=== PATIENT | female | born 1980 | race Caucasian/White ===

== ENCOUNTER → 2022-09-09 13:46 | Outpatient (BNVA) | payer MEDICAID, SELFPAY | PROVIDERS: PCP Family Medicine; Visit Provider Physician Assistant Surgical ==

== ENCOUNTER 2022-11-20 09:46 | Outpatient (REF) | payer MEDICAID, SELFPAY ==
[2022-11-20 14:51] LABS: MANUAL DIFF FLAG NO
[2022-11-20 14:54] LABS: Basophils Absolute Auto 0.1 X10*3/uL (0.0-0.2); Basophils Percent Auto 0.9 % (0-2); Eosinophils Absolute Auto 0.1 X10*3/uL (0.0-0.4); Eosinophils Percent Auto 1.5 % (0-4); Hematocrit 41.5 % (37.0-47.0); Hemoglobin 13.7 g/dl (12.0-16.0); Imm Gran Abs Auto 0.01 X10*3/uL (0.00-0.03); Imm Gran Pct Auto 0.2 % (0.0-0.4); Lymphocytes Absolute Auto 2.4 X10*3/uL (1.2-4.9); Lymphocytes Percent Auto 44.2 % (20-40); Mean Corpuscular Hemoglobin 30.2 pg (27.0-33.0); Mean Corpuscular Volume 91.6 fL (80.0-98.0); Monocytes Absolute Auto 0.5 X10*3/uL (0.1-1.2); Monocytes Percent Auto 9.6 % (2-11); Neutrophils Absolute Auto 2.3 x10*3/uL (2.0-8.3); Neutrophils Percent Auto 43.6 % (45-73); Platelet Count 487 X10*3/uL (160-400); Red Blood Count 4.53 X10*6/uL (4.20-5.50); Red Cell Distribution Width 11.9 % (11.0-16.0); White Blood Count 5.3 X10*3/uL (4.8-10.8)
[2022-11-20 15:06] LABS: Estimated Average Glucose 108 mg/dL; Hemoglobin A1c % 5.4 % (<6.0)
[2022-11-20 15:13] LABS: Alanine Aminotransferase 45 U/L (0-31); Albumin Level 4.7 g/dL (3.5-5.0); Alkaline Phosphatase 55 U/L (39-117); Anion Gap 15 (12-20); Aspartate Amino Transferase 37 U/L (5-31); Bilirubin Total 0.4 mg/dL (0.0-1.0); Blood Urea Nitrogen 10 mg/dL (9-16); Calcium 9.9 mg/dL (8.4-10.2); Carbon Dioxide 24 mmol/L (22-29); Chloride 105 mmol/L (96-108); Cholesterol 210 mg/dL (<200); Estimated Glomerular Filt Rate > 60; Glucose Fasting 104 mg/dL (60-99); HDL Cholesterol 37 mg/dL (>40); LDL Cholesterol Calculated 138 mg/dL (<100); Potassium 4.1 mmol/L (3.3-5.1); Sodium 140 mmol/L (135-145); Total Protein 8.6 g/dL (6.5-8.0); Triglycerides 178 mg/dL (<150)
[2022-11-20 15:24] LABS: Iron 114 mcg/dL (30-160); Percent Iron Saturation 38 % (15-50); Total Iron Binding Capacity 303 mcg/dL (228-428); Unsaturated Iron Binding 189 ug/dL
[2022-11-20 15:43] LABS: HCG Quantitative < 2 mIU/mL; TSH reflex Free T4 0.82 uIU/mL (0.32-4.0)
[2022-11-21 21:03] LABS: Follicle Stimulating Hormone 40.7 mIU/mL; Prolactin 14.2 ng/mL
[2022-11-22 19:49] LABS: TS Negative Control Passed; TS Panel A 1; TS Panel B 1; TS Positive Control Passed; TSpotTB Negative (Negative)
== END 2022-11-20 09:47 | disposition home or self-care (01) ==
LOC: HO.CHCLDS 09:46
PROVIDERS: Visit Provider Internal Medicine
DX: E66.09 Other obesity due to excess calories (principal); N93.9 Abnormal uterine and vaginal bleeding, unspecified; Z11.1 Encounter for screening for respiratory tuberculosis; Z68.32 Body mass index [BMI] 32.0-32.9, adult
CPT/HCPCS: 36415; 80053; 80061; 83001; 83002; 83036; 83540; 84146; 84443; 84702; 85025; 86481

== ENCOUNTER 2024-04-21 10:18 | Outpatient (REF) | payer MEDICAID, SELFPAY ==
[2024-04-21 11:37] LABS: MANUAL DIFF FLAG NO
[2024-04-21 11:47] LABS: Basophils Absolute Auto 0.1 X10*3/uL (0.0-0.2); Eosinophils Absolute Auto 0.1 X10*3/uL (0.0-0.4); Eosinophils Percent Auto 1.2 % (0-4); Hematocrit 38.8 % (37.0-47.0); Hemoglobin 13.2 g/dl (12.0-16.0); Imm Gran Abs Auto 0.01 X10*3/uL (0.00-0.03); Imm Gran Pct Auto 0.2 % (0.0-0.4); Lymphocytes Percent Auto 39.5 % (20-40); Mean Corpuscular Volume 88.2 fL (80.0-98.0); Monocytes Absolute Auto 0.4 X10*3/uL (0.1-1.2); Monocytes Percent Auto 7.9 % (2-11); Neutrophils Absolute Auto 2.5 x10*3/uL (2.0-8.3); Neutrophils Percent Auto 50.2 % (45-73); Platelet Count 431 X10*3/uL (160-400); Red Cell Distribution Width 11.8 % (11.0-16.0)
[2024-04-21 12:28] LABS: Estimated Average Glucose 131 mg/dL; Hemoglobin A1c % 6.2 % (<6.0)
[2024-04-21 12:46] LABS: Alanine Aminotransferase 38 U/L (0-31); Albumin Level 4.5 g/dL (3.5-5.0); Alkaline Phosphatase 60 U/L (39-117); Anion Gap 11 (12-20); Aspartate Amino Transferase 29 U/L (5-31); Bilirubin Total 0.3 mg/dL (0.0-1.0); Blood Urea Nitrogen 11 mg/dL (9-16); Calcium 9.4 mg/dL (8.4-10.2); Carbon Dioxide 26 mmol/L (22-29); Chloride 109 mmol/L (96-108); Cholesterol 201 mg/dL (<200); Estimated Glomerular Filt Rate > 60; Glucose Random 115 mg/dL (60-115); HDL Cholesterol 42 mg/dL (>40); LDL Cholesterol Calculated 134 mg/dL (<100); Potassium 4.1 mmol/L (3.3-5.1); Sodium 142 mmol/L (135-145); Total Protein 8.6 g/dL (6.5-8.0); Triglycerides 129 mg/dL (<150)
--- OUTSIDE RECORDS SUMMARY | 2024-04-21 12:46 | XMS_ITS | Encounter Summary ---
Author Organization [employer] Address [address] [place] [address] Care Team Providers Care Feed Handler Name Role Phone Lewis Arce MD Primary Care Prov ider Encounter Details Date Type Department Care Team (Late st Contact Info) Description 2024 Telephone [facility] [address] [place], [place] [id number] Lyala Oliver, ANP [address] [place] [address] Social History Tobacco Use Types Packs/Day Years Used Date Smoking Tobacco: Never Smokeless Tobacco: Never Alcohol Use Standard Drinks/Week Comments Not Currently 0 (1 standard drink = 0.6 oz pur e alcohol) Alcohol Answer Date Recorded How often do you have a drink containing alcohol ? 1 2024 How many drinks containing a lcohol do you have on a typical day when you are drinking? 0 2024 How often do you have six or more drinks on one occasion? 0 2024 Depression Answer Date Recorded Patient Health Questionnaire-9 Score 7 2024 Patient Health Questionnaire-9 Score 7 2024 Last PHQ-9: Questionnaire Data Not on file 0 2024 Housing Stability Answer Date Recorded What is your housing situation today? I have [place] [address] you li ve. Do you have problems with any of the following? None of the above 2024 Food Insecurity Answer Date Recorded Within the past 12 months, y ou worried that your food would run out before you got money to buy more: Often true 2024 Within the past 12 months,th e food you bought just didn't last and you didn't have enough money to get more: Sometimes True 2024 Transportation Answer Date Recorded In the past 12 months, has l ack of transportation kept you from medical appts, meetings, work or from getting things needed for daily living? No 2024 Utilities Answer Date Recorded In the past 12 months, has t he electric, gas, oil or water company threatened to shut off services in your home? Yes 2024 Depression Answer Date Recorded Patient Health Questionnaire-2 Score 0 2024 Internet Access Answer Date Recorded Internet Access Q1 Yes 2024 Internet Access Q2 Not on file 2024 Comments Unknown Sex and Gender Information Value Date Recorded Sex Assigned at Female 12/09/2021 10:18 AM EDT Legal Sex Female 10:18 AM EDT Gender Identity Female 12/09/2021 10:18 AM EDT Sexual Orientation Straight 12/09/2021 10 :18 AM EDT documented as of this encounter Plan of Treatment Upcoming Encounters Date Type Department Care Team (Late st Contact Info) Description 07/26/2024 3:30 PM EDT Telemedicine [facility] & [facility] [address] [place] [address] Lewis Arce MD [address] [place] [address] documented as of this encounter Visit Diagnoses Not on filedocumented in this encounter Additional Health Concerns Assessment Noted Time PHQ-9 Depression Total Score: 7 04/22/19 25 10:07 AM EDT documented as of this encounter Care Teams Feed Handler Relationship Specialty Start Date End Date Lewis Arce MD [address] [place] [address] PCP - General Internal Medicine 06/20/19 documented as of this encounter
--- OUTSIDE RECORDS SUMMARY | 2024-04-21 12:46 | XMS_ITS | Encounter Summary ---
Author Organization [employer] Address [address] [facility] [place] [address] Care Team Providers Care Drum Saw Operator Name Role Phone Lewis Arce MD Primary Care Prov ider Encounter Details Date Type Department Care Team (Latest Contact Info) Description 2024 Travel Social History Tobacco Use Types Packs/Day Years [...] is your housing situation today? I have [place] carrion [address] you [...] Info) Description 07/26/2024 3:30 PM EDT Telemedicine [facility] MED & PEDS [address] [place] [address] Lewis Arce MD [address] [place] [address] documented as of this encounter Visit Diagnoses Not on filedocumented in this encounter Additional Health Concerns Assessment Noted Time PHQ-9 Depression Total Score: 7 04/22/19 25 10:07 AM EDT documented as of this encounter Care Teams Drum Saw Operator Relationship Specialty Start Date End Date Lewis Arce MD [address] [place] [address] PCP - General Internal Medicine 06/20/19 documented as of this encounter
--- OUTSIDE RECORDS SUMMARY | 2024-04-21 12:46 | XMS_ITS | Encounter Summary ---
Author Organization [employer] Address [address] [facility] [address] [place] [address] Care Team Providers Care Log Handling Equipment Operator Name Role Phone Lewis Arce MD Primary Care Prov ider Reason for Visit * Reason Comments Pre-visit Planning (Unable to reach for PVP screening, LVM) Encounter Details Date Type Department Care Team ([facility] st Contact Info) Description 04/14/2024 Patient Outreach [facility] MED[facility]INE [address] [place] [address] Lewis Arce MD [address] [place] [address] Pre-visit Planning ((Unable to reach for PVP screening, LVM)) Social History Tobacco Use Types Packs/Day Years Used Date Smoking Tobacco: Never Smokeless Tobacco: Never Alcohol Use Standard Drinks/Week Comments Defer 0 (1 standard drink = 0.6 oz pur e alcohol) Depression Answer Date Recorded Patient Health Questionnaire-9 Score 0 04/01/2022 Housing Stability Answer Date Recorded What is your housing situation today? I have [place] car[employer]ion 11/24/[address] you li ve. Do you have problems with any of the following? None of the above 11/24/2022 Food Insecurity Answer Date Recorded Within the past 12 months, y ou worried that your food would run out before you got money to buy more: Never True 11/24/2022 Within the past 12 months,th e food you bought just didn't last and you didn't have enough money to get more: Never True Transportation Answer Date Recorded In the past 12 months, has l ack of transportation kept you from medical appts, meetings, work or from getting things needed for daily living? No 11/24/2022 Utilities Answer Date Recorded In the past 12 months, has t he electric, gas, oil or water company threatened to shut off services in your home? No 11/24/2022 Depression Answer Date Recorded Patient Health Questionnaire-2 Score 0 04/01/2022 Comments Unknown Sex and Gender Information Value Date Recorded Sex Assigned at Female 12/09/2021 10:18 AM EDT Legal Sex Female 10:18 AM EDT Gender Identity Female 12/09/2021 10:18 AM EDT Sexual Orientation Straight 12/09/2021 10 :18 AM EDT documented as of this encounter Progress Notes * Rebecca Mace - 04/14/2024 10:23 AM EST CC Rebecca. Placed outbound call to patient to complete pre-visit planning. No answer at this time. Patient name and were not confirmed. CC left voicemail requesting return call. Direct contact information provided. documented in this encounter Plan of Treatment Upcoming Encounters Date Type Department Care Team (Late st Contact Info) Description 07/26/2024 3:30 PM EDT Telemedicine [facility] MED & PEDS [address] [place] [address] Lewis Arce MD [address] [place] [address] documented as of this encounter Visit Diagnoses Not on filedocumented in this encounter Additional Health Concerns Assessment Noted Time PHQ-9 Depression Total Score: 0 04/01/19 23 11:06 AM EST documented as of this encounter Care Teams Log Handling Equipment Operator Relationship Specialty Start Date End Date Lewis Arce MD [address] [place] [address] PCP - General Internal Medicine 06/20/19 documented as of this encounter
--- OUTSIDE RECORDS SUMMARY | 2024-04-21 12:46 | XMS_ITS | Encounter Summary ---
Author Organization [employer] Address [address] [facility] [address] [place] [address] Care Team Providers Care Gifts Officer Name Role Phone Lewis Arce MD Primary Care Prov ider Reason for Visit * Reason Comments Pre-visit Planning Pre-visit planning - LVM Encounter Details Date Type Department Care Team ([facility] st Contact Info) Description 04/11/2024 Patient Outreach [facility] MED & PEDS [address] [place] [address] Lewis Arce MD [address] [place] [address] Pre-visit Planning (Pre-visit planning - LVM ) Social History Tobacco Use Types Packs/Day Years [...] as of this encounter Progress Notes * Mel Wallis - 04/11/2024 1:27 PM EST VENKATESH Maldonado placed outbound call to patient to complete pre-visit planning. No answer at this time. Patient name and were not confirmed. CC left voicemail requesting return call. Direct contact information provided. documented in this encounter Plan of Treatment Upcoming Encounters Date Type Department Care Team (Late st Contact Info) Description 07/26/2024 3:30 PM EDT Telemedicine [facility] MED & PEDS [address] [place] [address] Lewis Arce MD [address] [place] [address] documented as of this encounter Visit Diagnoses Not on filedocumented in this encounter Additional Health Concerns Assessment Noted Time PHQ-9 Depression Total Score: 0 04/01/19 23 11:06 AM EST documented as of this encounter Care Teams Gifts Officer Relationship Specialty Start Date End Date Lewis Arce MD [address] [place] [address] PCP - General Internal Medicine 06/20/19 documented as of this encounter
--- OUTSIDE RECORDS SUMMARY | 2024-04-21 12:46 | XMS_ITS | Clinical Summary ---
Author Organization [employer] Address [address] [facility] [address] [place] [address] Care Team Providers Care Studio Set Up Worker Name Role Phone Lewis Arce MD Primary Care Prov ider Allergies No known active allergies Medications Cholecalciferol 25 MCG (1000 UT) chewable tablet Chew 1 tablet in the morning. 1 Active fluticasone (Flonase Allergy Relief) 50 MCG/ACT nasal sprayIndications: Cough, unspecified type Administer 1 spray into each nostril in the morning. 16 g 3 3 Active Spacer/Aero-Holdi ng Chambers (Valved Holding Chamber) device FOR USE WITH INHALER 1 each 3 Active albuterol (Ventolin HFA) 108 (90 Base) MCG/ACT inhaler Inhale 2 puffs every 6 (six) hours if needed for wheezing. 18 g 11 3 Active pseudoephedrine (Sudafed) 60 MG tablet Take 1 tablet (60 mg) by mouth every 6 (six) hours if needed for congestion for up to 10 days. 30 tablet 3 Active acetaminophen (Tylenol) 500 MG tabletIndications :Cough, unspecified type Take 1 tablet (500 mg) by mouth every 8 (eight) hours if needed for mild pain. 30 tablet 3 3 Active sulfamethoxazole- trimethoprim (Bactrim DS) 800-160 MG tablet Take 1 tablet by mouth 2 times daily. 14 tablet 3 Active ibuprofen 400 MG tablet Take 1 tablet (400 mg) by mouth every 6 (six) hours if needed for moderate pain or fever for up to 30 doses. 30 tablet 3 Active ketoconazole (NIZOral) 2 % shampooIndication s:Seborrheic dermatitis Use 3 times per week Do not start before April 22, 2024. 240 mL 2 5 Active Blood Pressure kitIndications:El evated blood pressure reading without diagnosis of hypertension 1 each 2 times daily. 1 kit 5 04/22/19 26 Active Active Problems Problem Noted Date Diagnosed Date Elevated blood pressure read ing without diagnosis of hypertension 2024 Elevated cholesterol 11/24/2022 Assessment & Plan (11/24/2022 3:11 PM EDT): Discussed with patient blood work findings, encouraged healthy diet and exercise Physical exam 11/24/2022 Cerumen debris on tympanic membrane of right ear 11/24/2022 Assessment & Plan (11/24/2022 7:56 PM EDT): Will provide debrox to be applied for 1 week then she will visit the office for ear lavage. Mild intermittent asthma without complication Assessment & Plan (11/24/2022 7:58 PM EDT): Controlled with albuterol inhaler, told to keep a diary, in case of using it more than once a day told to schedule a appointment Pelvic pain 11/11/2022 Assessment & Plan (11/11/2022 9:11 AM EDT): Will order a pelvic ultrasound and will refer to automatic door mechanic as patient request Vaginal spotting 11/11/2022 Assessment & Plan (11/11/2022 9:15 AM EDT): Patient has been having vaginal bleeding for over 3 weeks, with associated right pelvic pain, no fever/chills, no discharge, nausea/vomiting. Will order a pelvic u/s and will refer to automatic door mechanic as per patient request Throat pain 06/20/2022 Assessment & Plan (06/20/2022 9:42 AM EDT): Positive for streph, started on Augmentin, told to stay hydrated, take ibuprofen as needed, call back if worsening Tinea pedis of both feet 04/01/2022 Assessment & Plan (04/01/2022 12:40 PM EST): Will order clotrimazole to be applied BID, keep area dry Amenorrhea 04/01/2022 Assessment & Plan (04/01/2022 12:40 PM EST): Will order labs for evaluation Encounter for screening mamm ogram for malignant neoplasm of breast 04/01/2022 Assessment & Plan (04/01/2022 12:39 PM EST): Will place order for bilateral mammogram Encounters Date Type Department Care Team Description 2024 9:30 AM EDT Office Visit [address] [address] Layla Oliver ANP Irregular menses (Primary Dx); Encounter for screening mammogram for malignant neoplasm of breast; Healthcare maintenance; Left arm pain; Encounter for immunization; Seborrheic dermatitis; Routine screening for STI (sexually transmitted infection); Witnessed apneic spells; Generalized pruritus; Elevated blood pressure reading without diagnosis of hypertension; Constipation, unspecified constipation type [address] [address] Layla Oliver ANP [address] [address] Layla Oliver ANP 2024 Travel 04/19/2024 Telephone [facility] [address] [place] [address] Lewis Arce MD chartprep 04/14/2024 Patient Outreach [address] [address] Lewis Arce MD Pre-visit Planning ((Unable to reach for PVP screening, LVM)) 04/11/2024 Patient Outreach [facility] [address] [place] [address] Lewis Arce MD Pre-visit Planning (Pre-visit planning - LVM ) from Last 3 Months Immunizations Name Administration Dates Next Due Influenza, seasonal, injectable, preservative fr ee 2024 Social History Tobacco Use Types Packs/Day Years Used Date Smoking Tobacco: Never Smokeless Tobacco: Never Tobacco Cessation:Counseling Given: No Alcohol Use Standard Drinks/Week Comments Not Currently [...] Orientation Straight 12/09/2021 10 :18 AM EDT Last Filed Vital Signs Vital Sign Reading Time Taken Comments Blood Pressure 136/96 2024 9:50 AM EDT Pulse 89 2024 9:36 AM EDT Temperature 36.5 ??C (97.7 ??F) 2024 9:36 AM ED T Respiratory Rate 14 2024 9:36 AM EDT Oxygen Saturation 99% 2024 9:36 AM EDT Inhaled Oxygen Concentration - - Weight 77.7 kg (171 lb 3.2 oz) 2024 9:36 A M EDT Height 152.4 cm (5') 2024 9:50 AM EDT Body Mass Index 33.44 2024 9:36 AM EDT Plan of Treatment Upcoming Encounters Date Type Department Care Team ([facility] st Contact Info) Description 07/26/2024 3:30 PM EDT Telemedicine [facility] [address] [place] [address] MazariegosLewis Marroquin MD [address] [place] [phone] Health Maintenance Due Date Last Done Comments Family Planning (PISQ) 04/22/1995 Pneumococcal Vaccine: Pediatrics (0 to 5 Years) and At-Risk Patients (6 to 49) Years) (1 of 2 - PCV) 04/22/1999 Mammogram 2020 Pap Smear 10/08/2024 10/08/2021 Alcohol/Substance Use Screening 2025 2024 COVID-19 Vaccine ( season) 2025 11/25/2020, 10/28/2020 Postponed from 10/11/2023 (Patient Refused) Depression Screening 2025 2024, 04/22/19 SDOH Screening 2025 2024 Tobacco Screening 2025 2024 DTaP/Tdap/Td Vaccines (2 - Td or Tdap) 09/30/2025 10/01/2015 Cervical Cancer Screening 10/08/2026 HPV/Cotest 10/08/2026 10/08/2021, 07/10, 05/13/2017, Additional history exists Zoster Vaccines (1 of 2) 2030 RSV Patients and Patients Aged 60 years or older (1 - 1-dose 75+ series) 04/22/2055 HIV Screening Completed 08/20/2020, 11/08/2019 Hepatitis A Vaccines Aged Out 08/20/2020, 08/18/19 19 No longer eligible based on patient's age to complete this topic Hepatitis B Vaccines Completed 08/20/2020, 01/26/2019, 08/17/2018 Hepatitis C Screening Completed 08/20/2020 Influenza Vaccine Completed 2024 HIB Vaccines Aged Out No longer eligi ble based on patient's age to complete this topic HPV Vaccines Aged Out No longer eligi ble based on patient's age to complete this topic IPV Vaccines Aged Out No longer eligi ble based on patient's age to complete this topic Meningococcal Vaccine Aged Out No lizzy kong eligible based on patient's age to complete this topic RSV under 20 months Aged Out No longe r eligible based on patient's age to complete this topic Rotavirus Vaccines Aged Out No longer eligible based on patient's age to complete this topic Procedures Procedure Name Priority Date/Time Associated Diagnosis Comments HEMOGLOBIN A1C Routine 2024 10:23 AM EDT Healthcare maintenance CBC WITH AUTO DIFFERENTIAL Routine 2024 10:23 AM EDT Healthcare maintenance THINPREP IMAGING PAP AND HPV MRNA E6/E7 WITH REFLEX TO HPV 16,18/45 Routine 10/08/2021 3:09 PM EDT ZZZ HISTORICAL HEPATITIS C AB W/REFL TO HCV RNA, QN, PCR Routine 08/20/2020 11:44 AM EDT HIV 1/2 ANTIGEN/ANTIBODY, FOURTH GENERATION W/RFL Routine 08/20/2020 11:44 AM EDT from Last 3 Months or Most Recently Relevant to Health Maintenance Results * (ABNORMAL) CBC auto differential (2024 10:23 AM EDT) White Blood Count 5.0 4.8 - 10.8 X10*3/uL [facility] Red Blood Count 4.40 4.20 - 5.50 X10*6/uL [facility] Hemoglobin 13.2 12.0 - 16.0 g/dl [facility] Hematocrit 38.8 37.0 - 47.0 % [facility] Mean Corpuscular Volume 88.2 80.0 - 98.0 fL [facility] Mean Corpuscular Hemoglobin 30.0 27.0 - 33.0 pg [facility] Mean Corpuscular HGB Conc 34.0 31.0 - 35.0 g/dl [facility] Red Cell Distribution Width 11.8 11.0 - 16.0 % [facility] Platelet Count 431(H) 160 - 400 X10*3/uL [facility] Mean Platelet Volume 9.0(L) 9.4 - 12.3 fL [facility] Neutrophils Percent Auto 50.2 45 - 73 % [facility] Imm Gran Pct Auto 0.2 0.0 - 0.4 % [facility] Lymphocytes Percent Auto 39.5 20 - 40 % [facility] Monocytes Percent Auto 7.9 2 - 11 % [facility] Eosinophils Percent Auto 1.2 0 - 4 % [facility] Basophils Percent Auto 1.0 0 - 2 % [facility] NRBC Pct Auto 0.0 0.0 - 0.2 /100WBC [facility] Neutrophils Absolute Auto 2.5 2.0 - 8.3 x10*3/uL [facility] Imm Gran Abs Auto 0.01 0.00 - 0.03 X10*3/uL [facility] Lymphocytes Absolute Auto 2.0 1.2 - 4.9 X10*3/uL [facility] Monocytes Absolute Auto 0.4 0.1 - 1.2 X10*3/uL [facility] Eosinophils Absolute Auto 0.1 0.0 - 0.4 X10*3/uL [facility] Basophils Absolute Auto 0.1 0.0 - 0.2 X10*3/uL [facility] NRBC Abs Auto 0.000 0.0 - 0.012 X10*3/uL [facility] Blood Venous blood specimen / Unknown 2024 10:23 AM EDT 2024 11:35 AM EDT Layla Oliver ANP LAB BLOOD ORDERABLES Final Resul t Performing Organization Address City/[facility] Co de Phone Number [facility] [address] [place] [address] [phone] * (ABNORMAL) Hemoglobin A1c (2024 10:23 AM EDT) Hemoglobin A1c 6.2(H) <6.0 % [facility] Comment:Hemoglobin A1C Refer ence Range Adults: 4.8 - 6.0 % Non diabetic: < 6.0 % Goal: < 7.0 %Additional Action Suggested: > 8.0 %Note: Hemoglobin A1c results are invalid for patients with abnormal amounts of HbF. Blood transfusions may impact the HbA1c concentration in the patient sample. Estimated Average Glucose 131 mg/dL [facility] Comment:eAG = Estimated ave rage glucose which is %A1C expressed asaverage glucose, using the formula of the M4P-DymrydlCejrdcw Glucose study (ADAG), Diabetes Care, Vol.31,#8,Sep. 2007 Blood Venous blood specimen / Unknown 2024 10:23 AM EDT 2024 11:35 AM EDT Layla Oliver ANP LAB BLOOD ORDERABLES Final Resul t Performing Organization Address [facility]/ZIP Co de Phone Number [facility] [address] [place] [address] [phone] * THINPREP TIS PAP AND HPV mRNA E6/E7 WITH REFLEX TO HPV 16,18/45 (10/08/2021 3:09 PM EDT) Clinical Information: None given [facility] COMMENT SEE COMMENT [facility] Comment: EXPLANATORY NOTE: ? The Pap is a screening test for cervical cancer. It is ?? not a diagnostic test and is subject to false negative ?? and false positive results. It is most reliable when a ?? satisfactory sample, regularly obtained, is submitted ?? with relevant clinical findings and history, and when ?? the Pap result is evaluated along with historic and ?? current clinical information. ?? COMMENT: This Pap test has been evaluated with computer assisted technology. [facility] Cytotechnologis t: SEE COMMENT [facility] Comment: SL, CT(ASCP) CT screening location: [address] ??[id number] HPV nRNA E6/E7 Not Detected Not Detected [facility] Comment: Methodology: Creative Project Manager-Mediated Amplification This assay detects E6/E7 viral messenger RNA (mRNA) from 14 high-risk HPV types (16,18,31,33,35,39,45,51,52,56,58,59,66,68). ? Cervical sources are required for HPV testing. If a vaginal source from a patient who has had a total hysterectomy with removal of cervix was ?? submitted, please contact the testing laboratory for alternative testing options. ?? For additional information, please refer to http://education.KnoCo/faq/TBQ925c0 (This link if provided for information/ educational purposes only.) Interpretation/ Result: Negative for intraepithelial lesion or malignancy. [facility] LMP: 07/03/2021 [facility] Prev. BX: NONE [facility] Prev. PAP: 07/2018 [facility] SOURCE: Cervix [facility] Statement Of Adequacy: SEE COMMENT [facility] Comment: Satisfactory for evaluation. Endocervical/transformation zone component absent. 10/08/2021 3:09 PM EDT Shalini Wolfe CNM LAB PATHOLOGY ORDERABLES Final Result [facility] [address] [place] [address], * HEPATITIS C AB W/REFL TO HCV RNA, QN, PCR (08/20/2020 11:44 AM EDT) HEPATITIS C ANTIBODY NON-REACT SHANTEL NON-REACT SHANTEL [facility] INDEX 0.01 <1.00 [facility] Comment: ?? HCV antibody was non-reactive. There is no laboratory ?? evidence of HCV infection. ?? In most cases, no further action is required. However, if recent HCV exposure is suspected, a test for HCV RNA (test code 67407) is suggested. ?? For additional information please refer to http://Pricing Engine.KnoCo/faq/FKA71x5 (This link is being provided for informational/ educational purposes only.) ?? 08/20/2020 11:4 4 AM EDT Lewis Pringle MD HISTORICAL/NON ORD ERABLE LABS Final Result [facility] [address] * HIV 1/2 ANTIGEN/ANTIBODY,FOURTH GENERATION W/RFL (08/20/2020 11:44 AM EDT) HIV-1/2 ANTIGEN AND ANTIBODIES, 4TH GENERATION W/ REFLEX NON-REACT SHANTEL NON-REACT SHANTEL [facility] Comment: HIV-1 antigen and HIV-1/HIV-2 antibodies were not detected. There is no laboratory evidence of HIV infection. ?? PLEASE NOTE: This information has been disclosed to you from records whose confidentiality may be protected by state law. ??If your state requires such protection, then the state law prohibits you from making any further disclosure of the information without the specific written consent of the person to whom it pertains, or as otherwise permitted by law. A general authorization for the release of medical or other information is NOT sufficient for this purpose. ? For additional information please refer to http://Pricing Engine.KnoCo/faq/KFB897 (This link is being provided for informational/ educational purposes only.) ? The performance of this assay has not been clinically validated in patients less than 2 years old. ?? 08/20/2020 11:4 4 AM EDT Lewis Pringle MD LAB BLOOD ORDERABL ES Final Result [facility] [address] from Last 3 Months or Most Recently Relevant to Health Maintenance Insurance [employer] [id number] [place] [address] GOLD * Guarantor: Mandy Raymundo Account Type Relation to Patient Date of Phone Billing Address Personal/[place] [address] Care Teams Studio Set Up Worker Relationship Specialty Start Date End Date Lewis Arce MD [address] [place] [phone] PCP - General Internal Medicine 06/20/19
--- OUTSIDE RECORDS SUMMARY | 2024-04-21 12:46 | XMS_ITS | Clinical Summary ---
Author Organization [facility] ity Address [address] [place] [address] Care Team Providers Care Cottonseed Meat Presser Name Role Phone Unavailable Primary Care Provider Unavailabl e Social History Tobacco Use Types Packs/Day Years Used Date Smoking Tobacco: Never Assessed Comments Unknown Sex and Gender Information Value Date Recorded Sex Assigned at Not on file Legal Sex Female 10:01 AM EST Gender Identity Not on file Sexual Orientation Not on file Plan of Treatment Health Maintenance Due Date Last Done Comments Breast Cancer Screening 1980 DTaP,Tdap,and Td Vaccines (1 - Tdap) 04/22/1999 Hepatitis B Vaccines (1 of 3 - 19+ 3-dose series) 04/22/1999 Cervical Cancer Screening: P ap Smear 2001 Depression Screening 01/07/2022 HIV Screening 01/07/2022 Hepatitis C Screening 01/07/2022 Social Influencers of Health Screening 01/07/2022 COVID-19 Vaccine (2023-2 5 season) 2023 Influenza Vaccine (#1) 2023 HIB Vaccines Aged Out No longer eligi ble based on patient's age to complete this topic HPV Vaccines Aged Out No longer eligi ble based on patient's age to complete this topic Hepatitis A Vaccines Aged Out No long er eligible based on patient's age to complete this topic IPV Vaccines Aged Out No longer eligi ble based on patient's age to complete this topic MMR Vaccines Aged Out No longer eligi ble based on patient's age to complete this topic Meningococcal ACWY Vaccine Aged Out N o longer eligible based on patient's age to complete this topic Meningococcal B Vacine Aged Out No lo nger eligible based on patient's age to complete this topic Pneumococcal Vaccine: Pediat rics (0 to 5 Years) and At-Risk Patients (6 to 64 Years) Aged Out No longer eligible b ased on patient's age to complete this topic RSV Immunization Patients Un eve 20 months Aged Out No longer eligible b ased on patient's age to complete this topic Varicella Vaccines Aged Out No longer eligible based on patient's age to complete this topic
--- OUTSIDE RECORDS SUMMARY | 2024-04-21 12:46 | XMS_ITS | Encounter Summary ---
Author Organization [employer] Address [address] [place] [address] Care Team Providers Care Wellness Nurse Rn Name Role Phone Lewis Arce MD Primary Care Prov ider Encounter Details Date Type Department Care Team (Late st Contact Info) Description 2024 Telephone [facility] [address] [place], [place] [phone] Layla Oliver, ANP [address] [place] [address] Social History Tobacco Use Types Packs/Day Years [...] AM EDT documented as of this encounter Miscellaneous Notes * Telephone Encounter - Heaven Solomon - 2024 9:29 AM EDT Pt walked in due to having an apt today pcp on insurance did not match fd advised pt after apt to visit insurance enrollment . Pt states she will be going after apt. documented in this encounter Plan of Treatment Upcoming Encounters Date Type Department Care Team (Late st Contact Info) Description 07/26/2024 3:30 PM EDT Telemedicine [facility] [address] [place] [address] Lewis Arce MD [address] [place] [address] documented as of this encounter Visit Diagnoses Not on filedocumented in this encounter Additional Health Concerns Assessment Noted Time PHQ-9 Depression Total Score: 7 04/22/19 25 10:07 AM EDT documented as of this encounter Care Teams Wellness Nurse Rn Relationship Specialty Start Date End Date Lewis Arce MD [address] [place] [phone] PCP - General Internal Medicine 06/20/19 documented as of this encounter
--- OUTSIDE RECORDS SUMMARY | 2024-04-21 12:46 | XMS_ITS | Encounter Summary ---
Author Organization [employer] Address [address] 7 [place] [address] Care Team Providers Care Mutual Fund Accountant Name Role Phone Lewis Arce MD Primary Care Prov ider Reason for Referral * Hospital - Outpatient (Routine) - Pending Review Specialty Diagnoses / Procedures Referred By Deysi mckee Referred To Contact Diagnoses Witnessed apneic spells Procedures Polysomnography Layla Oliver ANP [address] [place] [address] Phone: tel: fax: Sleep Medicine Service [facility] [address], [address] [place] [address] Phone: tel: fax: Referral ID Status Reason Start Date Expiration Date V isits Requested Visits Authorized [id number] Pending Review 2024 2025 1 1 * Imaging (Routine) - Closed Specialty Diagnoses / Procedures Referred By Contac t Referred To Contact Radiology Diagnoses Encounter for screening mammogram for malignant neoplasm of breast Procedures BI Mammogram Screening Bilateral Layla Oliver ANP [address] [place] [address] Phone: tel: fax: [facility] [address] [place], [place] Phone: tel: fax: Referral ID Status Reason Start Date Expiration Date Visits Re quested Visits Authorized [id number] Closed 2024 2025 1 1 Reason for Visit * Reason Comments Annual Exam Encounter Details Date Type Department Care Team (Racheal ariza Contact Info) Description 2024 9:30 AM EDT Office Visit [facility] [address] [place] [address] Layla Oliver ANP [address] [place] [address] Irregular menses (Primary Dx); Encounter for screening mammogram for malignant neoplasm of breast; Healthcare maintenance; Left arm pain; Encounter for immunization; Seborrheic dermatitis; Routine screening for STI (sexually transmitted infection); Witnessed apneic spells; Generalized pruritus; Elevated blood pressure reading without diagnosis of hypertension; Constipation, unspecified constipation type Social History Tobacco Use Types Packs/Day Years [...] is your housing situation today? I have hudsonbhargav carrion [address] you [...] AM EDT documented as of this encounter Last Filed Vital Signs Vital Sign Reading [...] Mass Index 33.44 2024 9:36 AM EDT documented in this encounter Progress Notes * BIPIN Landaverde - 2024 9:30 AM EDT SUBJECTIVE: Mandy Raymundo is a 44 y.o. year old female who presents for routine physical exam. Denies recent illness, injury, or hospitalization. PMH mild asthma, irregular menses, ?SHAN Acute Concerns: Itchy at night. Using Tide for detergent and pretty much any soap. Does have dandruff. PHQ 7 - she would like therapist for stress She wonders if she has sleep apnea. Has daytime somnolence. Partner says she snores and stops breathing in sleep. Appears she was either evaluated or referred to sleep medicine in past but says she did not have sleep study. Irregular menses as below, +hot flashes LMP: 5 mo ago, irregular x 1 yr Sexually active w/ AMAB () - has BTL she thinks but she would like to know what procedure she had for sure. Had at 23 or 24yo. No desire for . 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 Wilmer Baldwin, vp medical, provided Malian interpretation. Social History Social History Narrative Not on file Patient Active Problem List Diagnosis Tinea pedis of both feet Amenorrhea Encounter for screening mammogram for malignant neoplasm of breast Throat pain Pelvic pain Vaginal spotting Elevated cholesterol Physical exam Cerumen debris on tympanic membrane of right ear Mild intermittent asthma without complication History reviewed. No pertinent surgical history. No family history on file. Review of Systems Constitutional: Negative for chills and fever. HENT: Negative for sore throat. Respiratory: Negative for cough and shortness of breath. Cardiovascular: Negative for chest pain. Gastrointestinal: Positive for constipation. Negative for abdominal pain and diarrhea. Endocrine: Negative for polydipsia, polyphagia and polyuria. Genitourinary: Negative for dysuria, flank pain, frequency, hematuria, pelvic pain and urgency. + Irregular menses Musculoskeletal: Negative for back pain. OBJECTIVE: Vitals: 04/21/24 0936 04/21/24 0950 BP: (!) 150/104 (!) 136/96 BP Location: Left arm Left arm Patient Position: Sitting Sitting BP Cuff Size: Adult Large adult Pulse: 89 Resp: 14 Temp: 97.7 ??F (36.5 ??C) TempSrc: Temporal SpO2: 99% Weight: 171 lb 3.2 oz (77.7 kg) Height: 5' (1.524 m) Physical Exam Constitutional: General: She is not in acute distress. Appearance: Normal appearance. She is not ill-appearing. HENT: Head: Normocephalic and atraumatic. Eyes: General: No scleral icterus. Extraocular Movements: Extraocular movements intact. Pupils: Pupils are equal, round, and reactive to light. Cardiovascular: Rate and Rhythm: Normal rate and regular rhythm. Pulmonary: Effort: Pulmonary effort is normal. No accessory muscle usage or respiratory distress. Breath sounds: Normal breath sounds. Abdominal: Palpations: Abdomen is soft. Tenderness: There is no abdominal tenderness. Comments: + Hypoactive bowel sounds Lymphadenopathy: Cervical: No cervical adenopathy. Skin: General: Skin is warm and dry. Comments: Erythematous fine scaling plaque w/ some papules at hairline extending onto scalp, mild erythema and scaling at ear canal Neurological: Mental Status: She is alert and oriented to person, place, and time. Psychiatric: Mood and Affect: Mood normal. Behavior: Behavior normal. ASSESSMENT/PLAN Mandy was seen today for annual exam. Diagnoses and all orders for this visit: Irregular menses (Primary) With hot flashes. Will check TSH. - TSH W/Reflex to FT4; Future Encounter for screening mammogram for malignant neoplasm of breast - BI Mammogram Screening Bilateral; Future Healthcare maintenance Mammo ordered 2024 BTL for BCM LMP 5 months ago, irregular Will go to vaccine clinic or pharmacy for PCV 20 Flu shot today Routine labs as ordered Pap NIL, HPV- 2021 - CBC auto differential; Future - Comprehensive Metabolic Panel; Future - Lipid Panel, Standard; Future - Hemoglobin A1c; Future - Measles, Mumps, and Rubella (MMR) Antibodies (IgG) Panel, Immune Status; Future - T-SPOT??.TB; Future Left arm pain Comments: worse w/ lifting, mid left arm, above elbow. Recommend stretching, ice, PT referral if it persists Encounter for immunization - FLU VACCINE TRIVALENT (Fluarix) 6 mo + Seborrheic dermatitis At scalp and ears. Recommend: - ketoconazole (NIZOral) 2 % shampoo; Use 3 times per week Do not start before April 22, 2024. Routine screening for STI (sexually transmitted infection) - HIV-1/2 Antigen and Antibodies, Fourth Generation, with Reflexes; Future - RPR (Monitor) with Reflex to Titer; Future - Hepatitis C Antibody with Reflex to HCV, RNA, Quantitative, Real-Time PCR; Future Constipation Reports very low water intake. 1 bottle daily. Strongly recommend increased hydration, fiber intake. May take OTC fiber supplement, start w/ low dose and increase slowly to avoid bloating. witnessed apneic spells - Polysomnography; Future Generalized pruritus Recommend hypoallergenic soaps and detergents. No observable rash on arms today. Recommend moisturizing with hypoallergenic nonscented product. Elevated blood pressure without diagnosis of hypertension Recommend lifestyle interventions as below and follow-up with PCP team for blood pressure recheck. Will send blood pressure monitor to pharmacy. Lifestyle recommendations: be as active as able, ideally exercise 150min moderate intensity or 75min vigorous intensity weekly; increase intake of vegetables, fruits, whole grains, fish. Try to minimize intake of sugary or greasy food and drink. Use olive oil or vegetable, peanut, canola, or similar oil for cooking. Decrease or stop drinking alcohol if you drink, quit/decrease smoking if you smoke. Follow Up: With PCP for elevated blood pressure Current Outpatient Medications on File Prior to Visit Medication Sig Dispense Refill acetaminophen (Tylenol) 500 MG tablet Take 1 tablet (500 mg) by mouth every 8 (eight) hours if needed for mild pain. 30 tablet 3 albuterol (Ventolin HFA) 108 (90 Base) MCG/ACT inhaler Inhale 2 puffs every 6 (six) hours if neededfor wheezing. 18 g 11 Cholecalciferol 25 MCG (1000 UT) chewable tablet Chew 1 tablet in the morning. fluticasone (Flonase Allergy Relief) 50 MCG/ACT nasal spray Administer 1 spray into each nostril inthe morning. 16 g 3 ibuprofen 400 MG tablet Take 1 tablet (400 mg) by mouth every 6 (six) hours if needed for moderate pain or fever for up to 30 doses. 30 tablet 0 pseudoephedrine (Sudafed) 60 MG tablet Take 1 tablet (60 mg) by mouth every 6 (six) hours if neededfor congestion for up to 10 days. 30 tablet 0 Spacer/Aero-Holding Chambers (Valved Holding Chamber) device FOR USE WITH INHALER 1 each 0 sulfamethoxazole-trimethoprim (Bactrim DS) 800-160 MG tablet Take 1 tablet by mouth 2 times daily. 14 tablet 0 No current facility-administered medications on file prior to visit. Wilmer Baldwin, vp medical, provided Malian interpretation. documented in this encounter Miscellaneous Notes * Result Encounter Note - BIPIN Landaverde - 2024 9:30 AM EDT Additional labs pending, +preDM documented in this encounter Plan of Treatment Upcoming Encounters Date Type Department Care Team (Late st Contact Info) Description 07/26/2024 3:30 PM EDT Telemedicine [facility] [address] [place] [address] Lewis Arce MD [address] [place], [place] [id number] Scheduled Orders Name Type Priority Associated Diagnoses Orde r Schedule BI Mammogram Screening Bilateral Imaging Routine Encounter for screening mammogram for malignant neoplasm of breast Expected: 2024, Expires: 04/22/2025 TSH W/Reflex to FT4 Lab Routine Irregular menses Expected: 2024 (Approximate), Expires: 2025 Comprehensive Metabolic Panel Lab Routine Healthcare maintenance Expected: 2024 (Approximate), Expires: 2025 Lipid Panel, Standard Lab Routine Healthcare maintenance Expected: 2024 (Approximate), Expires: 2025 HIV-1/2 Antigen and Antibodies, Fourth Generation, with Reflexes Lab Routine Routine screening for STI (sexually transmitted infection) Expected: 2024 (Approximate), Expires: 2025 RPR (Monitor) with Reflex to??Titer Lab Routine Routine screening for STI (sexually transmitted infection) Expected: 2024 (Approximate), Expires: 2025 Hepatitis C Antibody with Reflex to HCV, RNA, Quantitative, Real-Time PCR Lab Routine Routine screening for STI (sexually transmitted infection) Expected: 2024 (Approximate), Expires: 2025 [facility] Routine Witnessed apneic spells Expected: 2024 (Approximate), Expires: 2025 Measles, Mumps, and Rubella (MMR) Antibodies??(IgG) Panel, Immune Status Lab Routine Healthcare maintenance Expected: 2024 (Approximate), Expires: 2025 T-SPOT??.TB Lab Routine Healthcare maintenance Expected: 2024 (Approximate), Expires: 2025 documented as of this encounter Procedures Procedure Name Priority Date/Time Associated Diagnosis Comments CBC WITH AUTO DIFFERENTIAL Routine 2024 10:23 AM EDT Healthcare maintenance HEMOGLOBIN A1C Routine 2024 10:23 AM EDT Healthcare maintenance documented in this encounter Results * (ABNORMAL) Hemoglobin A1c (2024 10:23 AM EDT) Hemoglobin A1c 6.2(H) <6.0 % [facility] Comment:Hemoglobin A1C Refer ence Range Adults: 4.8 - 6.0 % Non diabetic: < 6.0 % Goal: < 7.0 %Additional Action Suggested: > 8.0 %Note: Hemoglobin A1c results are invalid for patients with abnormal amounts of HbF. Blood transfusions may impact the HbA1c concentration in the patient sample. Estimated Average Glucose 131 mg/dL [facility] Comment:eAG = Estimated ave rage glucose which is %A1C expressed asaverage glucose, using the formula of the [id number] Glucose study (ADAG), Diabetes Care, Vol.31,#8,Sep. 2007 Blood Venous blood specimen / Unknown 2024 10:23 AM EDT 2024 11:35 AM EDT [facility] LAB BLOOD ORDERABLES Final Resul t [facility] [address] [place] [phone] * (ABNORMAL) CBC auto differential (2024 10:23 AM EDT) White Blood Count 5.0 4.8 - 10.8 X10*3/uL [facility] Red Blood Count 4.40 4.20 - 5.50 X10*6/uL [facility] Hemoglobin 13.2 12.0 - 16.0 g/dl [facility] Hematocrit 38.8 37.0 - 47.0 % [facility] Mean Corpuscular Volume 88.2 80.0 - 98.0 fL [facility] Mean Corpuscular Hemoglobin 30.0 27.0 - 33.0 pg [facility] Mean Corpuscular HGB Conc 34.0 31.0 - 35.0 g/dl [facility] Red Cell Distribution Width 11.8 11.0 - 16.0 % [facility] Platelet Count 431(H) 160 - 400 X10*3/uL [facility] Mean Platelet Volume 9.0(L) 9.4 - 12.3 fL [facility] Neutrophils Percent Auto 50.2 45 - 73 % [facility] Imm Gran Pct Auto 0.2 0.0 - 0.4 % [facility] Lymphocytes Percent Auto 39.5 20 - 40 % [facility] Monocytes Percent Auto 7.9 2 - 11 % [facility] Eosinophils Percent Auto 1.2 0 - 4 % [facility] Basophils Percent Auto 1.0 0 - 2 % [facility] NRBC Pct Auto 0.0 0.0 - 0.2 /100WBC [facility] Neutrophils Absolute Auto 2.5 2.0 - 8.3 x10*3/uL [facility] Imm Gran Abs Auto 0.01 0.00 - 0.03 X10*3/uL [facility] Lymphocytes Absolute Auto 2.0 1.2 - 4.9 X10*3/uL [facility] Monocytes Absolute Auto 0.4 0.1 - 1.2 X10*3/uL [facility] Eosinophils Absolute Auto 0.1 0.0 - 0.4 X10*3/uL [facility] Basophils Absolute Auto 0.1 0.0 - 0.2 X10*3/uL [facility] NRBC Abs Auto 0.000 0.0 - 0.012 X10*3/uL [facility] Blood Venous blood specimen / Unknown 2024 10:23 AM EDT 2024 11:35 AM EDT us Layla Oliver ANP LAB BLOOD ORDERABLES Final Resul t [facility] [address] [place] [phone] documented in this encounter Visit Diagnoses Diagnosis Irregular menses- Primary Irregular menstrual cycle Encounter for screening mammogram for malignant neoplasm of breast Healthcare maintenance Left arm pain Pain in soft tissues of limb Encounter for immunization Seborrheic dermatitis Unspecified seborrheic dermatitis Routine screening for STI (sexually transmitted infection) Screening examination for venereal disease Witnessed apneic spells Generalized pruritus Unspecified pruritic disorder Elevated blood pressure reading without diagnosis of hypertension Constipation, unspecified constipation type documented in this encounter Additional Health Concerns Assessment Noted Time PHQ-9 Depression Total Score: 7 04/22/19 25 10:07 AM EDT documented as of this encounter Care Teams Mutual Fund Accountant Relationship Specialty Start Date End Date Lewis Arce MD [address] [place] [phone] PCP - General Internal Medicine 06/20/19 documented as of this encounter
--- OUTSIDE RECORDS SUMMARY | 2024-04-21 12:46 | XMS_ITS | Encounter Summary ---
Author Organization [employer] Address [address] [address] Care Team Providers Care Spray Ii Painter Name Role Phone Lewis Arce MD Primary Care Prov ider Reason for Visit * Reason Onset Date Comments chartprep 04/19/2024 Encounter Details Date Type Department Care Team ([facility] Contact Info) Description 04/19/2024 Telephone [facility] [address] [place] [address] Lewis Arce MD [address] [place] [address] chartprep Social History Tobacco Use Types Packs/Day Years [...] encounter Miscellaneous Notes * Telephone Encounter - Irina Baldwin MA - 04/19/2024 11:11 AM EDT Chart Prep Labs: not applicable Images: not applicable Vaccines due: yes Covid, pcv20, and flu. Referrals: n/a Screenings: mammogram Overdue care gaps: Sbirt, SDOH, PHQ-9, JEANETTE-7 documented in this encounter Plan of Treatment Upcoming Encounters Date Type Department Care Team (Late st Contact Info) Description 07/26/2024 3:30 PM EDT Telemedicine [facility] [address] [place] [address] Lewis Arce MD [address] [place] [address] documented as of this encounter Visit Diagnoses Not on filedocumented in this encounter Additional Health Concerns Assessment Noted Time PHQ-9 Depression Total Score: 0 04/01/19 23 11:06 AM EST documented as of this encounter Care Teams Spray Ii Painter Relationship Specialty Start Date End Date Lewis Arce MD [address] [place] [address] PCP - General Internal Medicine 06/20/19 documented as of this encounter
[2024-04-21 12:56] LABS: HIV AB/AG Nonreactive (Nonreactive); HIV Num 1 0.05 S/CO (0.00-0.99); ~HepC Num1 0.13 S/CO (0.00-0.79); ~Hepatitis C Antibody Nonreactive (Nonreactive)
[2024-04-21 13:00] LABS: TSH reflex Free T4 0.82 uIU/mL (0.32-4.0)
[2024-04-22 09:03] LABS: Mumps Virus IgG Antibody >300.00 AU/mL; Rubeola IgG (Measles) >300.00 AU/mL
[2024-04-22 09:38] LABS: RPR Rapid Plasma Reagin NON-REACTIVE (NON-REACTIVE)
[2024-04-25 00:13] LABS: TS Negative Control Passed; TS Panel A 0; TS Panel B 0; TS Positive Control Passed; TSpotTB Negative (Negative)
== END 2024-04-21 10:19 | disposition home or self-care (01) ==
LOC: HO.HHCL 10:18
PROVIDERS: Visit Provider Nurse Practitioner Primary Care
DX: Z00.00 Encounter for general adult medical examination without abnormal findings (principal); Z11.3 Encounter for screening for infections with a predominantly sexual mode of transmission; N92.6 Irregular menstruation, unspecified
CPT/HCPCS: 36415; 80053; 80061; 83036; 84443; 85025; 86481; 86592; 86735; 86762; 86765; 86803; 87389